=== PATIENT | female | born 1980 | race Hispanic/Latino ===

== ENCOUNTER 2018-04-11 21:51 | Emergency (ER) | payer SELFPAY ==
[~2018-04-11] VITALS: Ht 170.2 cm; Wt 95.9 kg
[~2018-04-11 21:51] MED LIST: AMOXICILLIN500 MG PO
[2018-04-11 22:42] LABS: HEMATOCRIT 40.1 % (37.0-47.0); HEMOGLOBIN 13.1 g/dl (12.0-16.0); IMMATURE GRANULOCYTES 0.2 % (0.0-5.0); MEAN CELL VOLUME 84.8 fL CALC (80.0-100.0); MEAN CORPUSCULAR HGB 27.7 pG CALC (26.0-32.0); MEAN CORPUSCULAR HGB CONC 32.7 g/L CALC (32.0-36.0); NEUT# 3.87 thou/uL (2.00-7.15); RED BLOOD COUNT 4.73 mill/uL (4.20-5.60); RED CELL DISTRI WIDTH 12.7 % (11.5-15.5)
[2018-04-11] MEDS ORDERED: TAM75CAP PO (23:19)
[2018-04-11 23:30] VITALS: BP 108/70
== END 2018-04-11 23:30 | disposition home or self-care (01) | DRG 153 ==
LOC: ED 21:51
PROVIDERS: Family Medicine
DX: J11.1 Influenza due to unidentified influenza virus with other respiratory manifestations (principal)

== ENCOUNTER 2019-08-12 | Inpatient (IN) | payer MEDICAID ==
[2019-08-11 17:03] LABS: IMMATURE GRANULOCYTES 0.5 % (0.0-5.0); MEAN CELL VOLUME 82.7 fL CALC (80.0-100.0); MEAN CORPUSCULAR HGB 26.8 pG CALC (26.0-32.0); MEAN CORPUSCULAR HGB CONC 32.4 g/dL CAL (32.0-36.0); NEUT# 10.21 thou/uL (2.00-7.15); RED BLOOD COUNT 5.83 mill/uL (4.20-5.60); RED CELL DISTRI WIDTH 14.2 % (11.5-15.5)
[2019-08-11 17:16] LABS: HEMATOCRIT 48.2 % (37.0-47.0); HEMOGLOBIN 15.6 g/dl (12.0-16.0)
[2019-08-11 17:20] LABS: URINE BLOOD DIPSTICK TRACE-INTACT (NEGATIVE); URINE COLOR BROWN; URINE GLUCOSE - DIPSTICK NEGATIVE (NEGATIVE); URINE KETONE 15 mg/dL (NEGATIVE); URINE LEUK ESTERASE TRACE (NEGATIVE); URINE NITRITE - DIPSTICK NEGATIVE (Negative); URINE PROTEIN - DIPSTICK 30 mg/dL (NEG-TRACE); URINE SPECIFIC GRAVITY >=1.030
[2019-08-11 17:21] LABS: ALKALINE PHOSPHATASE 273 u/l (38-126); ANION GAP 18 (6-22 (CALC)); BUN 10 mg/dL (7-17); BUN/CREATININE RATIO 16 (12-20 (CALC)); CARBON DIOXIDE 20 mmol/l (22-30); CHLORIDE 103 mmol/l (95-108); CREATININE 0.6 mg/dL (0.5-1.0); GFR > 60 ML/MIN (>=60 (CALC)); GFR FOR AFR.AMER. > 60 ML/MIN (>=60 (CALC)); POTASSIUM 4.1 mmol/l (3.5-5.1); SODIUM 136 mmol/l (137-146)
[2019-08-11 17:22] LABS: URINE BILIRUBIN - DIPSTICK LARGE (NEGATIVE)
[2019-08-11 17:30] LABS: URINE SQUAMOUS EPITHELIAL CELL MODERATE EPI/hpf (0-FEW)
[2019-08-11 17:50] LABS: ALBUMIN 4.8 g/dL (3.2-5.0); BILIRUBIN, TOTAL 4.3 mg/dL (0.0-1.4); LIPASE 43025 u/l (23-300); SGOT/AST 354 u/l (14-36); TOTAL PROTEIN 8.9 g/dL (6.3-8.2)
[2019-08-11 20:08] VITALS: BP 129/90
[~2019-08-12] MED LIST changes: +TAM75CAP PO
[2019-08-12 04:30] VITALS: BP 107/75
[2019-08-12 05:01] LABS: ALKALINE PHOSPHATASE 202 u/l (38-126); ANION GAP 12 (6-22 (CALC)); BUN 8 mg/dL (7-17); BUN/CREATININE RATIO 15 (12-20 (CALC)); CARBON DIOXIDE 23 mmol/l (22-30); CHLORIDE 107 mmol/l (95-108); CREATININE 0.5 mg/dL (0.5-1.0); GFR > 60 ML/MIN (>=60 (CALC)); GFR FOR AFR.AMER. > 60 ML/MIN (>=60 (CALC)); POTASSIUM 4.2 mmol/l (3.5-5.1); SGOT/AST 247 u/l (14-36); SODIUM 137 mmol/l (137-146)
[2019-08-12 05:08] LABS: ALBUMIN 3.5 g/dL (3.2-5.0); AMYLASE 1406 u/l (30-110); BILIRUBIN, TOTAL 1.7 mg/dL (0.0-1.4); LIPASE 9777 u/l (23-300); TOTAL PROTEIN 6.5 g/dL (6.3-8.2)
[2019-08-12 07:46] VITALS: BP 110/76
[2019-08-12 11:10] VITALS: BP 135/71
[2019-08-12 15:18] VITALS: BP 115/81
[2019-08-12 19:16] VITALS: BP 113/72
[2019-08-13] VITALS (11 sets, daily range): BP systolic 109–138; BP diastolic 63–89
[2019-08-14 00:29] VITALS: BP 114/76
[2019-08-14 04:05] VITALS: BP 108/74
[2019-08-14 05:59] LABS: HEMATOCRIT 35.2 % (37.0-47.0); HEMOGLOBIN 11.4 g/dl (12.0-16.0); IMMATURE GRANULOCYTES 0.6 % (0.0-5.0); MEAN CELL VOLUME 83.6 fL CALC (80.0-100.0); MEAN CORPUSCULAR HGB 27.1 pG CALC (26.0-32.0); MEAN CORPUSCULAR HGB CONC 32.4 g/dL CAL (32.0-36.0); NEUT# 9.43 thou/uL (2.00-7.15); RED BLOOD COUNT 4.21 mill/uL (4.20-5.60); RED CELL DISTRI WIDTH 13.8 % (11.5-15.5)
[2019-08-14 06:27] LABS: ALKALINE PHOSPHATASE 164 u/l (38-126); AMYLASE 96 u/l (30-110); ANION GAP 11 (6-22 (CALC)); BUN 6 mg/dL (7-17); BUN/CREATININE RATIO 12 (12-20 (CALC)); CARBON DIOXIDE 21 mmol/l (22-30); CHLORIDE 108 mmol/l (95-108); CREATININE 0.5 mg/dL (0.5-1.0); GFR > 60 ML/MIN (>=60 (CALC)); GFR FOR AFR.AMER. > 60 ML/MIN (>=60 (CALC)); LIPASE 350 u/l (23-300); POTASSIUM 3.9 mmol/l (3.5-5.1); SGOT/AST 109 u/l (14-36); SODIUM 136 mmol/l (137-146); TOTAL PROTEIN 5.9 g/dL (6.3-8.2)
[2019-08-14 06:44] LABS: BILIRUBIN, TOTAL 0.7 mg/dL (0.0-1.4)
[2019-08-14 07:55] VITALS: BP 106/75
[2019-08-14] MEDS ORDERED: PERCOCET 5/325M1 TAB PO (13:15)
== END 2019-08-14 13:50 | disposition home or self-care (01) | DRG 418 ==
PROVIDERS: Family Medicine; ADMIT Surgery
PROC: 0FT44ZZ Resection of Gallbladder, Percutaneous Endoscopic Approach (ICD-10-PCS; principal; 2019-08-13)
DX: K85.10 Biliary acute pancreatitis without necrosis or infection (principal); K80.00 Calculus of gallbladder with acute cholecystitis without obstruction; Z11.59 Encounter for screening for other viral diseases
CPT/HCPCS: J0131; J1100; J2710; Q9967